=== PATIENT | female | born 1990 | race Caucasian/White ===

== ENCOUNTER 2023-01-27 03:51 | Inpatient (IN) | payer SELFPAY ==
[2023-01-27] MEDS: Butorphanol 1 MG/ML SDV IVPUSH PRN (22:19)
[2023-01-27] MEDS: Lactated Ringers 1,000 ML IV SCH (23:57)
[2023-01-28] MEDS ORDERED: Misoprostol 200 MCG Tab PO PRN (00:15)
[2023-01-28] MEDS ORDERED: Oxytocin/0.9 % Sodium Chloride 30 UNIT/500 ML BAG IV SCH (00:15)
[2023-01-28] MEDS ORDERED: Methylergonovine 0.2 MG/1 ML Amp IM PRN (00:15)
[2023-01-28] MEDS ORDERED: Water For Irrigation,Sterile 1,000 ML Container IRR PRN (00:15)
[2023-01-28] MEDS ORDERED: Carboprost Tromethamine 250 MCG/1 ML Amp IM PRN (00:15)
[2023-01-28] MEDS ORDERED: Butorphanol 1 MG/ML SDV IVPUSH PRN (00:15)
[2023-01-28] MEDS ORDERED: Sodium Chloride 0.9% 20 ML SDV IV PRN (00:15)
[2023-01-28] MEDS ORDERED: Lidocaine 1% 50 ML MDV INJECT PRN (00:15)
[2023-01-28] MEDS ORDERED: Sodium Chloride 0.9% 10 ML Syringe FLUSH PRN (00:15)
[2023-01-28] MEDS ORDERED: Sodium Chloride 0.9% 2.5 ML Syringe FLUSH PRN (00:15)
[2023-01-28] MEDS ORDERED: Tranexamic Acid 1,000 MG in Sodium Chloride 0.9% 100 ML IV PRN (00:15)
[2023-01-28] MEDS: Butorphanol 1 MG/ML SDV IVPUSH PRN ×2 (00:21→02:35)
[2023-01-28] MEDS ORDERED: Ampicillin 2 GM in Sodium Chloride 0.9% 100 ML IV ONE (00:29)
[2023-01-28] MEDS: Lactated Ringers 1,000 ML IV SCH (03:22)
[2023-01-28] MEDS ORDERED: Witch Hazel Medicated Pads 40/Jar TOP PRN (04:10)
[2023-01-28] MEDS ORDERED: Bisacodyl 10 MG Supp RECTAL PRN (04:10)
[2023-01-28] MEDS ORDERED: Benzocaine/Menthol 20%-0.5% Spray 78 GM Cannister TOP PRN (04:10)
[2023-01-28] MEDS ORDERED: Docusate Sodium 100 MG Cap PO PRN (04:10)
[2023-01-28] MEDS ORDERED: oxyCODONE 5 MG Tab PO PRN (04:10)
[2023-01-28] MEDS ORDERED: Ibuprofen 400 MG Tab PO PRN (04:10)
[2023-01-28] MEDS ORDERED: Acetaminophen 500 MG Tab PO PRN (04:10)
[2023-01-28] MEDS ORDERED: Lanolin 100% Cream 7 GM Tube TOP PRN (04:10)
[2023-01-28] MEDS ORDERED: Ampicillin 1 GM in Sodium Chloride 0.9% 50 ML IV SCH (04:30)
[2023-01-28] MEDS: Ibuprofen 800 MG Tab PO PRN ×3 (04:31→16:31)
[2023-01-28] MEDS: Acetaminophen 500 MG Tab PO PRN ×3 (07:53→19:50)
[2023-01-29] MEDS: Ibuprofen 800 MG Tab PO PRN ×2 (00:14→09:05)
[2023-01-29] MEDS: Acetaminophen 500 MG Tab PO PRN (04:15)
== END 2023-01-29 13:16 | disposition home or self-care (01) | DRG 805 ==
LOC: MW.OB 03:51 → OBSVTOIN 01-28 03:51 → MW.OB 01-28 06:36
PROVIDERS: ADMIT Obstetrics & Gynecology; ATTEND Obstetrics & Gynecology
PROC: 10E0XZZ Delivery of Products of Conception, External Approach (ICD-10-PCS; principal; 2023-01-28)
PROC: 0HQ9XZZ Repair Perineum Skin, External Approach (ICD-10-PCS; 2023-01-28)
PROC: 3E0234Z Introduction of Serum, Toxoid and Vaccine into Muscle, Percutaneous Approach (ICD-10-PCS; 2023-01-28)
DX: O48.0 Post-term pregnancy (principal); U07.1 COVID-19; Z37.0 Single live birth; O99.324 Drug use complicating childbirth; O98.52 Other viral diseases complicating childbirth; O70.0 First degree perineal laceration during delivery; O99.334 Smoking (tobacco) complicating childbirth; F17.200 Nicotine dependence, unspecified, uncomplicated; O26.893 Other specified pregnancy related conditions, third trimester; F12.90 Cannabis use, unspecified, uncomplicated; Z79.82 Long term (current) use of aspirin; Z3A.40 40 weeks gestation of pregnancy; Z67.11 Type A blood, Rh negative
CPT/HCPCS: 36415; 59025; 59409; 80305-QW; 85014; 85018; 85027; 85460; 86592; 86850; 86900; 86901; A9270-GY; J0290; J0595; J2001; J2590; J2790; J7050; J7120; U0002

== ENCOUNTER 2024-08-14 07:00 | Inpatient (IN) | payer SELFPAY ==
[2024-08-14] MEDS ORDERED: Carboprost Tromethamine 250 MCG/1 mL Vial IM PRN (07:02)
[2024-08-14] MEDS ORDERED: Sodium Chloride 0.9% 10 ML Syringe FLUSH PRN (07:02)
[2024-08-14] MEDS ORDERED: Water For Irrigation,Sterile 1,000 ML Container IRR PRN (07:02)
[2024-08-14] MEDS ORDERED: Ondansetron 4 MG/2 ML SDV IVPUSH PRN (07:02)
[2024-08-14] MEDS ORDERED: Methylergonovine 0.2 MG/1 ML Amp IM PRN (07:02)
[2024-08-14] MEDS ORDERED: Sodium Chloride 0.9% 20 ML SDV IV PRN (07:02)
[2024-08-14] MEDS ORDERED: Sodium Chloride 0.9% 2.5 ML Syringe FLUSH PRN (07:02)
[2024-08-14] MEDS ORDERED: Tranexamic Acid IN NACL,ISO-OS 1,000 MG in Premix Bag 1 BAG IV PRN (07:02)
[2024-08-14] MEDS ORDERED: Misoprostol 200 MCG Tab PO PRN (07:02)
[2024-08-14] MEDS ORDERED: Terbutaline 1 MG/ML SDV SUBCUT PRN (07:04)
[2024-08-14] MEDS: Lactated Ringers 1,000 ML IV SCH (07:52)
[2024-08-14] MEDS: Oxytocin/0.9 % Sodium Chloride 30 UNIT/500 ML BAG IV SCH ×2 (07:53→13:51)
[2024-08-14 08:26] LABS: HEMATOCRIT 35.2 % (37.0-47.0); HEMOGLOBIN 13.2 g/dL (12.0-16.0); MEAN CORPUSCULAR HEMOGLOBIN 36.9 pg (28.0-32.0); MEAN CORPUSCULAR HGB CONC 37.5 g/dL (32.0-36.0); MEAN CORPUSCULAR VOLUME 98.3 fL (83.0-99.0); MEAN PLATELET VOLUME 10.8 fL (9.4-12.3); PLATELET COUNT,PLT 174 K/uL (150-400); RED BLOOD CELL COUNT 3.58 M/uL (4.10-5.30); WHITE BLOOD CELL COUNT,WBC 8.72 K/uL (3.9-11.3)
[2024-08-14] MEDS: Butorphanol 2 MG/ML SDV IVPUSH PRN (09:32)
[2024-08-14] MEDS: Lidocaine 1% 50 ML MDV INJECT PRN (13:58)
[2024-08-14] MEDS: Misoprostol 200 MCG Tab RECTAL PRN (14:07)
[2024-08-14] MEDS: Misoprostol 200 MCG Tab ONE (14:56)
[2024-08-14] MEDS ORDERED: Lanolin 100% Cream 7 GM Tube TOP PRN (15:04)
[2024-08-14 15:09] LABS: PH,UMBILICAL ARTERIAL 7.278 (7.18-7.38); PH,UMBILICAL VENOUS 7.273 (7.25-7.45)
[2024-08-14] MEDS: Acetaminophen 1,000 MG in Premix Bag 1 BAG IV ONE (15:26)
[2024-08-14] MEDS: Ketorolac 30 MG/ML SDV IVPUSH ONE (15:26)
[2024-08-14] MEDS: Witch Hazel Medicated Pads 40/Jar TOP PRN (15:57)
[2024-08-14] MEDS: Benzocaine/Menthol 20%-0.5% Spray 78 GM Cannister TOP PRN (15:57)
[2024-08-14] MEDS: Ibuprofen 800 MG Tab PO PRN (19:45)
[2024-08-14] MEDS: Docusate Sodium 100 MG Cap PO PRN (20:47)
[2024-08-14] MEDS: Acetaminophen 500 MG Tab PO PRN (21:53)
[2024-08-15 06:25] LABS: BASOPHILS ABSOLUTE AUTO 0.07 K/uL (0.00-0.20); BASOPHILS PERCENT AUTO 0.7 % (0.0-1.0); EOSINOPHILS ABSOLUTE AUTO 0.17 K/uL (0.00-0.45); EOSINOPHILS PERCENT AUTO 1.7 % (0.0-6.0); HEMATOCRIT 31.3 % (37.0-47.0); HEMOGLOBIN 11.3 g/dL (12.0-16.0); IMMATURE GRAN ABSOLUTE AUTO 0.03 K/uL (0.00-0.05); IMMATURE GRAN PERCENT AUTO 0.3 % (0.0-0.4); LYMPHOCYTES ABSOLUTE AUTO 2.03 K/uL (1.00-4.80); LYMPHOCYTES PERCENT AUTO 20.5 % (24.0-44.0); MEAN CORPUSCULAR HGB CONC 36.1 g/dL (32.0-36.0); MEAN CORPUSCULAR VOLUME 99.7 fL (83.0-99.0); MEAN PLATELET VOLUME 11.4 fL (9.4-12.3); MONOCYTES ABSOLUTE AUTO 0.63 K/uL (0.00-0.80); MONOCYTES PERCENT AUTO 6.4 % (0.0-8.0); NEUTROPHILS ABSOLUTE AUTO 6.95 K/uL (1.80-7.70); NEUTROPHILS PERCENT AUTO 70.4 % (41.0-71.0); PLATELET COUNT,PLT 111 K/uL (150-400); RED BLOOD CELL COUNT 3.14 M/uL (4.10-5.30); WHITE BLOOD CELL COUNT,WBC 9.88 K/uL (3.9-11.3)
== END 2024-08-15 15:35 | disposition home or self-care (01) | DRG 807 ==
LOC: MW.OB 07:00 → OBSVTOIN 15:05 → MW.OB 16:08
PROVIDERS: ADMIT Obstetrics & Gynecology; ATTEND Obstetrics & Gynecology
PROC: 10E0XZZ Delivery of Products of Conception, External Approach (ICD-10-PCS; principal; 2024-08-14)
PROC: 3E033VJ Introduction of Other Hormone into Peripheral Vein, Percutaneous Approach (ICD-10-PCS; 2024-08-14)
PROC: 3E0P7VZ Introduction of Hormone into Female Reproductive, Via Natural or Artificial Opening (ICD-10-PCS; 2024-08-14)
PROC: 0HQ9XZZ Repair Perineum Skin, External Approach (ICD-10-PCS; 2024-08-14)
PROC: 10907ZC Drainage of Amniotic Fluid, Therapeutic from Products of Conception, Via Natural or Artificial Opening (ICD-10-PCS; 2024-08-14)
PROC: 3E0334Z Introduction of Serum, Toxoid and Vaccine into Peripheral Vein, Percutaneous Approach (ICD-10-PCS; 2024-08-14)
DX: O48.0 Post-term pregnancy (principal); Z37.0 Single live birth; O99.334 Smoking (tobacco) complicating childbirth; O70.0 First degree perineal laceration during delivery; O77.0 Labor and delivery complicated by meconium in amniotic fluid; O69.81X0 Labor and delivery complicated by cord around neck, without compression, not applicable or unspecified; O26.893 Other specified pregnancy related conditions, third trimester; Z67.11 Type A blood, Rh negative; Z3A.40 40 weeks gestation of pregnancy
CPT/HCPCS: 36415; 59025; 59409; 82803; 85025; 85027; 85460; 86592; 86850; 86900; 86901; A9270-GY; J0131; J0595; J1885; J2001; J2590; J2790; J7120